=== PATIENT | female | born 1950 | race Caucasian/White ===

== ENCOUNTER → 2019-09-25 | Outpatient (CLI) | payer BC, MEDICARE ==
--- NOTE | 2019-09-25 10:06 | Diagnostic Imaging Report ---
PROCEDURE: CT sinuses without contrast TECHNIQUE: Multiple contiguous axial images were obtained through the sinuses without the use of intravenous contrast. Coronal and sagittal reformations were then performed. Auto Exposure Controls were utilized during the CT exam to meet ALARA standards for radiation dose reduction. INDICATION: Right-sided facial pain There are no prior studies available for comparison. The sinuses are generally clear and well aerated. There is no significant mucosal thickening or fluid layering to suggest sinusitis. There is a small 6 mm retention cyst along the posterior aspect of the right maxillary antrum. There may be a similar sized retention cyst along the lateral aspect of the left maxillary antrum. Coronal images reveal that the osteomeatal complexes are patent. The nasal septum is not significantly deviated. The bone windows show no evidence for a fracture or for a destructive lesion. The orbits are symmetrical and within normal limits. The intracranial contents, where visualized are unremarkable. IMPRESSION: There are small retention cysts in both maxillary antra. The sinuses are generally clear and well aerated however. There is no evidence for active sinus disease at this time. Dictated by: Dictated on workstation # [id number]
== END ==
LOC: RAD FS 08:54
PROVIDERS: ATTEND Otolaryngology Otolaryngology/Facial Plastic Surgery
DX: J34.1 Cyst and mucocele of nose and nasal sinus (principal); R51 Headache
CPT/HCPCS: 70486

== ENCOUNTER 2020-07-09 16:33 | Emergency (ER) | payer BC, MEDICARE ==
[~2020-07-09] VITALS: Ht 152.4 cm; Wt 80.9 kg
[~2020-07-09 16:33] MED LIST: AMLO2.5T4 PO; BUPR300T98 PO; CIPR500T4 PO; FEXO180T84 PO; FURO80TA3 PO; GABA300C PO; HYDR-3817 PO; HYDR12.56; LEVO75TA6 PO; LIOT5TAB10 PO; LISI1TAB46 PO; METF-865 PO; MONT10TA26 PO; POTA20TA15 PO; PREN-37 PO; ROSU5TAB13 PO; SPIR25TA5 PO; TOPI25TA10 PO; TRIA0.2581 PO
--- NOTE | 2020-07-09 16:48 | ED Chest Pain ---
General Stated Complaint: CHEST PAIN,RT LEG SWELLING/REDNESS Source: patient Exam Limitations: no limitations History of Present Illness Date Seen by Provider: Jul 09, 2020 Time Seen by Provider: 16:40 Initial Comments 69-year-old female presents with left-sided chest pain which began this morning. Worse with movement and deep breath. History of present illness, patient had atraumatic injury on 31 July with resultant rib fractures and pneumothorax. On July had a chest tube inserted which was removed 3 days later and she shortly after was sent home. She has been doing incentive spirometry and doing well otherwise. Denies any fever or chills, does have an occasional cough, denies shortness of air. She is on home O2, which she was not on prior to the injury. Allergies and Home Medications Allergies Coded Allergies: No Known Drug Allergies (Unverified , 06/30/20) Home Medications Amlodipine Besylate 2.5 Mg Tablet, 2.5 MG PO DAILY, (Reported) Bupropion HCl 300 Mg Tab.er.24h, 300 MG PO DAILY, (Reported) Ciprofloxacin HCl 500 Mg Tablet, 500 MG PO BID Prescribed by: KERA ANTONIO on 07/05/20 1141 Fexofenadine HCl 180 Mg Tablet, 180 MG PO BID, (Reported) Furosemide 80 Mg Tablet, 80 MG PO DAILY, (Reported) Gabapentin 300 Mg Capsule, 300 MG PO HS, (Reported) Hydrocodone/Acetaminophen 1 Each Tablet, 1 EACH PO Q4H Prescribed by: KERA ANTONIO on 07/04/20 1800 Levothyroxine Sodium 75 Mcg Tablet, 75 MCG PO HS, (Reported) Liothyronine Sodium 5 Mcg Tablet, 2.5 MCG PO 0700,1200, (Reported) TAKES OF A 5MG Lisinopril/Hydrochlorothiazide 1 Each Tablet, 1 EA PO DAILY, (Reported) Metformin HCl 500 Mg Tab.er.24h, 1,000 MG PO DAILY, (Reported) TAKES 2 (500MG) TABS Montelukast Sodium 10 Mg Tablet, 10 MG PO DAILY, (Reported) Potassium Chloride 20 Meq Tab.er.prt, 20 MEQ PO DAILY, (Reported) Vit/Iron Fumarate/FA 1 Each Tablet, 2 EACH PO DAILY, (Reported) Rosuvastatin Calcium 5 Mg Tablet, 5 MG PO DAILY, (Reported) Spironolactone 25 Mg Tablet, 25 MG PO DAILY, (Reported) Topiramate 25 Mg Tablet, 25 MG PO BID, (Reported) Triazolam 0.25 Mg Tablet, 0.5 MG PO HS PRN for SLEEP, (Reported) TAKES 2 (0.25MG) TABS Patient Home Medication List Home Medication List Reviewed: Yes Review of Systems Review of Systems Constitutional: No dizziness, No fever, No malaise, No weakness EENTM: No Symptoms Reported Respiratory: See HPI, Cough; Denies Orthopnea, Denies Shortness of Air, Denies Stridor, Denies Wheezing Cardiovascular: See HPI, Chest Pain; Denies Edema, Denies Lightheadedness, Denies Palpitations, Denies Syncope Gastrointestinal: Denies Abdominal Pain, Denies Nausea, Denies Vomiting Musculoskeletal: No back pain, No joint pain Skin: No change in color, No lesions, No lumps Past Bgalcgs-Vzbyqy-Kigotl Hx Past Med/Social Hx: Reviewed Nursing Past Med/Soc Hx Patient Social History 2nd Hand Smoke Exposure: No Recent Foreign Travel: No Contact w/Someone Who Travel: No Recent Hopitalizations: No Past Medical History Surgeries: Yes Gallbladder, Hysterectomy, Tonsillectomy Respiratory: No Cardiac: Yes Hypertension Neurological: No Genitourinary: No Gastrointestinal: No Musculoskeletal: No Endocrine: Yes Diabetes, Non-Insulin dep HEENT: No Cancer: No Psychosocial: No Integumentary: No Blood Disorders: No Physical Exam Vital Signs Vital Signs - First Documented Capillary Refill : Height, Weight, BMI Height: '" Weight: lbs. oz. kg; 34.74 BMI Method: General Appearance: No Apparent Distress, WD/WN Neck: Normal Inspection, Non Tender, Supple Respiratory: Lungs Clear, Normal Breath Sounds, No Accessory Muscle Use, No Respiratory Distress, Other (diffuse tenderness Left chest wall) Cardiovascular: Regular Rate, Rhythm, No Edema, No JVD, Normal Peripheral Pulses Gastrointestinal: Non Tender, Soft; No Distended, No Guarding Extremity: Normal Capillary Refill, Non Tender, No Calf Tenderness Neurologic/Psychiatric: Alert, Oriented x3, No Motor/Sensory Deficits, Normal Mood/Affect Skin: Normal Color, Warm/Dry Progress/Results/Core Measures Results/Orders Lab Results Laboratory Tests Test 07/09/20 16:50 Range/Units White Blood Count 11.6 H 4.3-11.0 10^3/uL Red Blood Count 3.48 L 4.35-5.85 10^6/uL Hemoglobin 9.5 L 11.5-16.0 G/DL Hematocrit 30 L 35-52 % Mean Corpuscular Volume 86 80-99 FL Mean Corpuscular Hemoglobin 27 25-34 PG Mean Corpuscular Hemoglobin Concent 32 32-36 G/DL Red Cell Distribution Width 15.1 H 10.0-14.5 % Platelet Count 326 130-400 10^3/uL Mean Platelet Volume 9.2 7.4-10.4 FL Neutrophils (%) (Auto) 62 42-75 % Lymphocytes (%) (Auto) 21 12-44 % Monocytes (%) (Auto) 11 0-12 % Eosinophils (%) (Auto) 4 0-10 % Basophils (%) (Auto) 1 0-10 % Neutrophils # (Auto) 7.2 1.8-7.8 X 10^3 Lymphocytes # (Auto) 2.5 1.0-4.0 X 10^3 Monocytes # (Auto) 1.3 H 0.0-1.0 X 10^3 Eosinophils # (Auto) 0.4 H 0.0-0.3 10^3/uL Basophils # (Auto) 0.1 0.0-0.1 10^3/uL Sodium Level 137 135-145 MMOL/L Potassium Level 4.6 3.6-5.0 MMOL/L Chloride Level 96 L 98-107 MMOL/L Carbon Dioxide Level 26 21-32 MMOL/L Anion Gap 15 H 5-14 MMOL/L Blood Urea Nitrogen 21 H 7-18 MG/DL Creatinine 1.34 H 0.60-1.30 MG/DL Estimat Glomerular Filtration Rate 39 BUN/Creatinine Ratio 16 Glucose Level 104 70-105 MG/DL Calcium Level 9.3 8.5-10.1 MG/DL Corrected Calcium 9.8 8.5-10.1 MG/DL Total Bilirubin 0.3 0.1-1.0 MG/DL Aspartate Amino Transf (AST/SGOT) 31 5-34 U/L Alanine Aminotransferase (ALT/SGPT) 32 0-55 U/L Alkaline Phosphatase 147 H 40-136 U/L Troponin I < 0.30 <0.30 NG/ML Total Protein 7.0 6.4-8.2 GM/DL Albumin 3.4 3.2-4.5 GM/DL My Orders Orders - ROVENSTINE,NILDA Bijan DO Chest Pa/Lat (2 View) (07/09/20 16:38) Cbc With Automated Diff (07/09/20 16:43) Comprehensive Metabolic Panel (07/09/20 16:43) Troponin I Fs (07/09/20 16:43) Ekg Tracing (07/09/20 16:43) Ed Iv/Invasive Line Start (07/09/20 16:43) Ns Iv 500 Ml (Sodium Chloride 0.9%) (07/09/20 17:45) Vital Signs/I&O 07/09/20 07/09/20 16:35 16:35 Temp 37.2 Pulse 73 Resp 15 B/P (MAP) 138/55 (82) Pulse Ox 100 O2 Delivery Nasal Cannula Nasal Cannula O2 Flow Rate 3.00 3.0 Progress Progress Note : Progress Note COMPARISON: 07/04/2020. FINDINGS: Normal heart size and central pulmonary vascularity. Moderate left pleural effusion is similar to the prior exam. Lungs are otherwise well aerated. No residual pneumothorax. Multiple left posterior and lateral rib fractures are again noted. IMPRESSION: 1. Stable multiple left rib fractures. 2. Moderate left pleural effusion and resulting consolidation in the left lung base is also similar to the prior exam. 3. No residual pneumothorax is identified. Dictated on workstation # [id number] Dict: 07/09/20 1705 Trans: 07/09/20 1710 [id number] Interpreted by: JOE EPNA MD Electronically signed by: Initial ECG Impression Time: 16:40 Initial ECG Rate: 70 Initial ECG Rhythm: Normal Sinus Initial ECG Intervals: Normal Initial ECG Impression: Normal Departure Impression Primary Impression: Chest wall pain Additional Impressions: Fracture of rib Qualified Codes: S22.42XD - Multiple fractures of ribs, left side, subsequent encounter for fracture with routine healing Pleural effusion Mild dehydration Disposition: 01 HOME, SELF-CARE Condition: Stable Departure-Patient Inst. Decision time for Depature: 17:40 Referrals: JONATHAN RDZ MD (PCP/Family) Primary Care Physician Patient Instructions: Rib Fracture (DC), Blunt Chest Trauma (DC) Add. Discharge Instructions: Keep your follow up appointment with Dr Bashir tomorrow as previously scheduled. Return to the ER with any worsening pain. NILDA ABARCA DO Jul 09, 2020 16:48
[2020-07-09 17:08] LABS: HEMATOCRIT 30 % (35-52); HEMOGLOBIN 9.5 G/DL (11.5-16.0); MEAN CORPUSCULAR HEMOGLOBIN 27 PG (25-34); MEAN CORPUSCULAR HGB CONC 32 G/DL (32-36); MEAN CORPUSCULAR VOLUME 86 FL (80-99); MEAN PLATELET VOLUME 9.2 FL (7.4-10.4); PLATELET COUNT 326 10^3/uL (130-400); WHITE BLOOD COUNT 11.6 10^3/uL (4.3-11.0)
[2020-07-09 17:09] LABS: BASOPHILS # (AUTO) 0.1 10^3/uL (0.0-0.1); BASOPHILS % (AUTO) 1 % (0-10); EOSINOPHILS # (AUTO) 0.4 10^3/uL (0.0-0.3); EOSINOPHILS % (AUTO) 4 % (0-10); LYMPHOCYTES # (AUTO) 2.5 X 10^3 (1.0-4.0); LYMPHOCYTES % (AUTO) 21 % (12-44); MONOCYTES # (AUTO) 1.3 X 10^3 (0.0-1.0); MONOCYTES % (AUTO) 11 % (0-12); NEUTROPHILS # (AUTO) 7.2 X 10^3 (1.8-7.8); NEUTROPHILS % (AUTO) 62 % (42-75)
--- NOTE | 2020-07-09 17:10 | Diagnostic Imaging Report ---
EXAM: CHEST PA/LAT (2 VIEW). INDICATION: Recent pneumothorax. Left-sided chest pain. COMPARISON: 07/04/2020. FINDINGS: Normal heart size and central pulmonary vascularity. Moderate left pleural effusion is similar to the prior exam. Lungs are otherwise well aerated. No residual pneumothorax. Multiple left posterior and lateral rib fractures are again noted. IMPRESSION: 1. Stable multiple left rib fractures. 2. Moderate left pleural effusion and resulting consolidation in the left lung base is also similar to the prior exam. 3. No residual pneumothorax is identified. Dictated by: Dictated on workstation # [id number]
[2020-07-09 17:31] LABS: ALKALINE PHOSPHATASE 147 U/L (40-136); BILIRUBIN,TOTAL 0.3 MG/DL (0.1-1.0); BUN/CREATININE RATIO 16; CALCIUM 9.3 MG/DL (8.5-10.1); CARBON DIOXIDE 26 MMOL/L (21-32); CHLORIDE 96 MMOL/L (98-107); CREATININE SERUM 1.34 MG/DL (0.60-1.30); GFR ESTIMATED 39; GLUCOSE 104 MG/DL (70-105); POTASSIUM 4.6 MMOL/L (3.6-5.0); SODIUM 137 MMOL/L (135-145)
[2020-07-09 17:32] LABS: ALANINE AMINOTRANSFERASE 32 U/L (0-55); ALBUMIN 3.4 GM/DL (3.2-4.5)
[2020-07-09] MEDS ORDERED: NS IV 500 ML 500 ML IV SCH (17:45)
[2020-07-09 18:26] VITALS: BP 119/42
== END 2020-07-09 18:26 | disposition home or self-care (01) ==
LOC: EDUNIT# 16:33 → ER FS 16:34
DX: S22.42XD Multiple fractures of ribs, left side, subsequent encounter for fracture with routine healing (principal); R07.89 Other chest pain; J90 Pleural effusion, not elsewhere classified; E86.0 Dehydration; E11.9 Type 2 diabetes mellitus without complications; I10 Essential (primary) hypertension; Z79.84 Long term (current) use of oral hypoglycemic drugs; X58.XXXD Exposure to other specified factors, subsequent encounter
CPT/HCPCS: 36415; 71046; 80053; 84484; 85025; 93005

== ENCOUNTER → 2020-07-11 | Outpatient (CLI) | payer BC, MEDICARE ==
[2020-07-11 13:08] LABS: CREATININE SERUM 1.55 MG/DL (0.60-1.30); MAGNESIUM 2.3 MG/DL (1.6-2.4); POTASSIUM 4.6 MMOL/L (3.6-5.0)
[2020-07-11 13:09] LABS: ALBUMIN 3.5 GM/DL (3.2-4.5); BILIRUBIN,TOTAL 0.2 MG/DL (0.1-1.0)
== END ==
LOC: LAB FS 12:25
PROVIDERS: ATTEND Nurse Practitioner Family
DX: M79.661 Pain in right lower leg (principal)
CPT/HCPCS: 36415; 80053; 83735

== ENCOUNTER 2020-10-01 12:08 | Inpatient (IN) | payer BC, MEDICARE ==
[~2020-10-01] VITALS: Ht 165.1 cm; Wt 78.3 kg
[2020-10-01 12:31] LABS: BASOPHILS % (AUTO) 1 % (0-10); EOSINOPHILS % (AUTO) 3 % (0-10); HEMATOCRIT 34 % (35-52); HEMOGLOBIN 10.7 G/DL (11.5-16.0); LYMPHOCYTES # (AUTO) 2.2 X 10^3 (1.0-4.0); LYMPHOCYTES % (AUTO) 30 % (12-44); MEAN CORPUSCULAR HEMOGLOBIN 28 PG (25-34); MEAN CORPUSCULAR HGB CONC 32 G/DL (32-36); MEAN CORPUSCULAR VOLUME 87 FL (80-99); MEAN PLATELET VOLUME 9.4 FL (7.4-10.4); MONOCYTES % (AUTO) 10 % (0-12); NEUTROPHILS # (AUTO) 4.1 X 10^3 (1.8-7.8); NEUTROPHILS % (AUTO) 57 % (42-75); PLATELET COUNT 289 10^3/uL (130-400); WHITE BLOOD COUNT 7.3 10^3/uL (4.3-11.0)
[2020-10-01 12:32] LABS: EOSINOPHILS # (AUTO) 0.2 10^3/uL (0.0-0.3); MONOCYTES # (AUTO) 0.7 X 10^3 (0.0-1.0)
--- NOTE | 2020-10-01 12:41 | Diagnostic Imaging Report ---
PROCEDURE: CT head without contrast. TECHNIQUE: Multiple contiguous axial images were obtained through the brain without the use of intravenous contrast. Auto Exposure Controls were utilized during the CT exam to meet ALARA standards for radiation dose reduction. INDICATION: Loss of memory. Patient has prior history of brain tumor with tumor removal. COMPARISON: No prior studies are available for comparison. FINDINGS: There are postsurgical changes of the right occipital craniectomy. There is some encephalomalacia in the right occipital lobe as well as some dystrophic calcifications. Ventricles and sulci are otherwise unremarkable. No sulcal effacement or midline shift is identified. No acute intra-axial or extra-axial hemorrhage is detected. Cisterns are patent. Visualized paranasal sinuses are clear. IMPRESSION: Postsurgical changes. No acute intracranial process is detected. Dictated by: Dictated on workstation # [id number]
[2020-10-01 12:48] LABS: PROTHROMBIN TIME PATIENT 13.5 SEC (12.2-14.7)
--- NOTE | 2020-10-01 13:06 | Diagnostic Imaging Report ---
EXAMINATION: Chest 1 view HISTORY: Shortness of breath COMPARISON: 07/09/2020 FINDINGS: The lungs are clear without edema or pneumonia. No pleural effusion or pneumothorax. Heart size is normal. IMPRESSION: 1. Clear lungs. Dictated by: Dictated on workstation # [id number]
[2020-10-01 13:17] LABS: POTASSIUM 5.1 MMOL/L (3.6-5.0)
[2020-10-01 13:18] LABS: BILIRUBIN,TOTAL 0.2 MG/DL (0.1-1.0); CALCIUM 9.3 MG/DL (8.5-10.1); CREATININE SERUM 2.95 MG/DL (0.60-1.30); MAGNESIUM 2.7 MG/DL (1.6-2.4); TOTAL PROTEIN 7.1 GM/DL (6.4-8.2)
[2020-10-01] MEDS ORDERED: NS IV 1000 ML 1,000 ML IV SCH ×2 (14:00→15:45)
--- NOTE | 2020-10-01 14:04 | ED General ---
General Chief Complaint: Altered Mental Status Stated Complaint: AMS Nursing Triage Note: Patient's reports patient woke this morning around 5 am unable to remember her date of and had loss of balance. Patient oriented to person and place on arrival to the ED, unable to remember the month, day, or year. She states she was getting ready for work this morning and "just didn't feel right." Nursing Sepsis Screen: No Definite Risk Source of Information: Patient History of Present Illness Date Seen by Provider: Oct 01, 2020 Time Seen by Provider: 13:00 Initial Comments Patient confused since this morning unable to remember date and location and dizzy and lightheaded upon standing. Patient alert and oriented to person ED arrival but unable to remember place month tear year. Patient states she does not feel right. No focal extremity weakness or loss of sensation. Patient started on phentermine yesterday by PCP. No recent illness. No fever chills nausea vomiting or sweats. No chest pain palpitations, shortness of breath. No abdominal pain, vomiting diarrhea. No urinary frequency urgency or dysuria. No other acute symptoms or complaints. Patient's history is limited by the cognitive impairment Timing/Duration: 4-6 Hours Severity: Moderate Modifying Factors: improves with Other Associated Systoms: Other (limited due to mental status changes) Allergies and Home Medications Allergies Coded Allergies: No Known Drug Allergies (Unverified , 06/30/20) Home Medications Amlodipine Besylate 2.5 Mg Tablet, 2.5 MG PO DAILY, (Reported) Bupropion HCl 300 Mg Tab.er.24h, 300 MG PO DAILY, (Reported) Ciprofloxacin HCl 500 Mg Tablet, 500 MG PO BID Prescribed by: KERA ANTONIO on 07/05/20 1141 Fexofenadine HCl 180 Mg Tablet, 180 MG PO BID, (Reported) Furosemide 80 Mg Tablet, 80 MG PO DAILY, (Reported) Gabapentin 300 Mg Capsule, 300 MG PO HS, (Reported) Hydrocodone/Acetaminophen 1 Each Tablet, 1 EACH PO Q4H Prescribed by: KERA ANTONIO on 07/04/20 1800 Levothyroxine Sodium 75 Mcg Tablet, 75 MCG PO HS, (Reported) Liothyronine Sodium 5 Mcg Tablet, 2.5 MCG PO 0700,1200, (Reported) TAKES OF A 5MG Lisinopril/Hydrochlorothiazide 1 Each Tablet, 1 EA PO DAILY, (Reported) Metformin HCl 500 Mg Tab.er.24h, 1,000 MG PO DAILY, (Reported) TAKES 2 (500MG) TABS Montelukast Sodium 10 Mg Tablet, 10 MG PO DAILY, (Reported) Potassium Chloride 20 Meq Tab.er.prt, 20 MEQ PO DAILY, (Reported) Vit/Iron Fumarate/FA 1 Each Tablet, 2 EACH PO DAILY, (Reported) Rosuvastatin Calcium 5 Mg Tablet, 5 MG PO DAILY, (Reported) Spironolactone 25 Mg Tablet, 25 MG PO DAILY, (Reported) Topiramate 25 Mg Tablet, 25 MG PO BID, (Reported) Triazolam 0.25 Mg Tablet, 0.5 MG PO HS PRN for SLEEP, (Reported) TAKES 2 (0.25MG) TABS Patient Home Medication List Home Medication List Reviewed: Yes Review of Systems Review of Systems Constitutional: see HPI EENTM: see HPI Respiratory: see HPI Cardiovascular: see HPI Gastrointestinal: see HPI Genitourinary: see HPI Musculoskeletal: see HPI Skin: see HPI Psychiatric/Neurological: See HPI Hematologic/Lymphatic: See HPI Immunological/Allergic: see HPI All Other Systems Reviewed Negative Unless Noted: Yes Past Qeznqfr-Kpjrau-Cytdwy Hx Past Med/Social Hx: Reviewed Nursing Past Med/Soc Hx Patient Social History 2nd Hand Smoke Exposure: No Recent Foreign Travel: No Contact w/Someone Who Travel: No Recent Infectious Disease Expo: No Recent Hopitalizations: No Seasonal Allergies Seasonal Allergies: No Past Medical History Surgeries: Yes (Pneumothorax with chest tube 06/2019) Gallbladder, Hysterectomy, Tonsillectomy Respiratory: No Cardiac: Yes Hypertension Neurological: Yes (brain tumor surgically removed) Brain Tumor Genitourinary: No Gastrointestinal: No Musculoskeletal: No Endocrine: Yes Diabetes, Non-Insulin dep HEENT: No Cancer: No Psychosocial: No Integumentary: No Blood Disorders: No Physical Exam Vital Signs Vital Signs - First Documented 10/01/20 12:15 Temp 36.7 Pulse 63 Resp 18 B/P (MAP) 115/36 (62) Pulse Ox 98 O2 Delivery Room Air Capillary Refill : Less Than 3 Seconds Height, Weight, BMI Height: '" Weight: lbs. oz. 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 Norm as Tested Focused Exam Sepsis Stage: Ruled Out Lactate Level 10/01/20 16:10: Lactic Acid Level Laboratory Tests Test 10/01/20 16:10 Progress/Results/Core Measures Suspected Sepsis Recent Fever Within 48 Hours: No Infection Criteria Present: None New/Unexplained Altered Menta: No Sepsis Screen: No Definite Risk SIRS Temperature: Pulse: 63 Respiratory Rate: 18 Laboratory Tests 10/01/20 12:16: White Blood Count 7.3 Blood Pressure 115 /36 Mean: 62 10/01/20 16:10: Laboratory Tests 10/01/20 12:16: Creatinine 2.95H, INR Comment 1.0, Platelet Count 289, Total Bilirubin 0.2 Results/Orders Lab Results Laboratory Tests Test 10/01/20 12:16 10/01/20 12:38 10/01/20 12:43 10/01/20 16:10 Range/Units White Blood Count 7.3 4.3-11.0 10^3/uL Red Blood Count 3.86 L 4.35-5.85 10^6/uL Hemoglobin 10.7 L 11.5-16.0 G/DL Hematocrit 34 L 35-52 % Mean Corpuscular Volume 87 80-99 FL Mean Corpuscular Hemoglobin 28 25-34 PG Mean Corpuscular Hemoglobin Concent 32 32-36 G/DL Red Cell Distribution Width 14.7 H 10.0-14.5 % Platelet Count 289 130-400 10^3/uL Mean Platelet Volume 9.4 7.4-10.4 FL Immature Granulocyte % (Auto) 0 % Neutrophils (%) (Auto) 57 42-75 % Lymphocytes (%) (Auto) 30 12-44 % Monocytes (%) (Auto) 10 0-12 % Eosinophils (%) (Auto) 3 0-10 % Basophils (%) (Auto) 1 0-10 % Neutrophils # (Auto) 4.1 1.8-7.8 X 10^3 Lymphocytes # (Auto) 2.2 1.0-4.0 X 10^3 Monocytes # (Auto) 0.7 0.0-1.0 X 10^3 Eosinophils # (Auto) 0.2 0.0-0.3 10^3/uL Basophils # (Auto) 0.0 0.0-0.1 10^3/uL Immature Granulocyte # (Auto) 0.0 0.0-0.1 10^3/uL Prothrombin Time 13.5 12.2-14.7 SEC INR Comment 1.0 0.8-1.4 Activated Partial Thromboplast Time 40 H 24-35 SEC Sodium Level 140 135-145 MMOL/L Potassium Level 5.1 H 3.6-5.0 MMOL/L Chloride Level 102 98-107 MMOL/L Carbon Dioxide Level 27 21-32 MMOL/L Anion Gap 11 5-14 MMOL/L Blood Urea Nitrogen 50 H 7-18 MG/DL Creatinine 2.95 H 0.60-1.30 MG/DL Estimat Glomerular Filtration Rate 16 BUN/Creatinine Ratio 17 Glucose Level 135 H 70-105 MG/DL Calcium Level 9.3 8.5-10.1 MG/DL Corrected Calcium 9.3 8.5-10.1 MG/DL Magnesium Level 2.7 H 1.6-2.4 MG/DL Total Bilirubin 0.2 0.1-1.0 MG/DL Aspartate Amino Transf (AST/SGOT) 16 5-34 U/L Alanine Aminotransferase (ALT/SGPT) 12 0-55 U/L Alkaline Phosphatase 97 40-136 U/L Total Protein 7.1 6.4-8.2 GM/DL Albumin 4.0 3.2-4.5 GM/DL Thyroid Stimulating Hormone (TSH) 1.40 0.35-4.94 UIU/ML Glucometer 122 H 70-110 MG/DL Urine Color YELLOW Urine Clarity CLEAR Urine pH 8.0 5-9 Urine Specific [place] 1.010 L 1.016-1.022 Urine Protein NEGATIVE NEGATIVE Urine Glucose (UA) NEGATIVE NEGATIVE Urine Ketones NEGATIVE NEGATIVE Urine Nitrite NEGATIVE NEGATIVE Urine Bilirubin NEGATIVE NEGATIVE Urine Urobilinogen 0.2 < = 1.0 MG/DL Urine Leukocyte Esterase NEGATIVE NEGATIVE Urine RBC (Auto) NEGATIVE NEGATIVE Urine RBC NONE /HPF Urine WBC RARE /HPF Urine Squamous Epithelial Cells 2-5 /HPF Urine Crystals NONE /LPF Urine Bacteria NEGATIVE /HPF Urine Casts NONE /LPF Urine Mucus NEGATIVE /LPF Urine Culture Indicated NO My Orders Orders - KRZYSZTOF CADET DO Ct Head Wo (10/01/20 12:14) Cbc With Automated Diff (10/01/20 12:20) Comprehensive Metabolic Panel (10/01/20 12:20) Magnesium (10/01/20 12:20) Thyroid Stimulating Hormone (10/01/20 12:20) Ekg Tracing (10/01/20 12:20) Chest 1 View Ap/Pa Only (10/01/20 12:20) Protime With Inr (10/01/20 12:23) Partial Thromboplastin Time (10/01/20 12:23) Accucheck Fasting (10/01/20 12:23) Ns Iv 1000 Ml (Sodium Chloride 0.9%) (10/01/20 14:00) Urinalysis (10/01/20 15:35) Drug Screen Stat (Urine) (10/01/20 15:42) Lactic Acid Analyzer (10/01/20 15:43) Arterial Blood Gas (10/01/20 15:43) Ns Iv 1000 Ml (Sodium Chloride 0.9%) (10/01/20 15:45) Thiamine Injection (Vitamin B-1 Injectio (10/02/20 09:00) Vital Signs/I&O 10/01/20 12:15 Temp 36.7 Pulse 63 Resp 18 B/P (MAP) 115/36 (62) Pulse Ox 98 O2 Delivery Room Air Capillary Refill : Less Than 3 Seconds Blood Pressure Mean: 62 Departure Communication (Admissions) Patient with memory loss, dizziness and hypotension and acute kidney injury.. Night stroke score of 1. No acute focal deficits. IV fluids given. CT head negative. Will admit to the hospitalist service for further evaluation and treatment. Impression Primary Impression: Altered mental status Additional Impression: Acute kidney injury Disposition: ADMITTED INPATIENT Condition: Stable Admissions Decision to Admit Reason: Admit from ER (General) Departure-Patient Inst. Decision time for Depature: 14:11 Referrals: [facility] (PCP) Primary Care Physician PAUL COLLADO APRN (Family) Primary Care Physician Patient Instructions: Acute Kidney Injury, Altered Mental Status (DC) KRZYSZTOF CADET DO Oct 01, 2020 14:04
[2020-10-01 15:46] LABS: CLARITY,URINE CLEAR; COLOR,URINE YELLOW; GLUCOSE, URINE (UA) NEGATIVE (NEGATIVE); KETONES,URINE NEGATIVE (NEGATIVE); NITRITE,URINE NEGATIVE (NEGATIVE); PROTEIN,URINE NEGATIVE (NEGATIVE)
[2020-10-01 15:47] LABS: BACTERIA,URINE NEGATIVE /HPF; BILIRUBIN,URINE NEGATIVE (NEGATIVE); LEUKOCYTE ESTERASE ,URINE NEGATIVE (NEGATIVE); WBC,URINE RARE /HPF
[2020-10-01] MEDS ORDERED: THIAMINE 100 MG/ML 2 ML (VITAMIN B-1) VIAL ONE (16:31)
[2020-10-01] MEDS ORDERED: NS (IVPB) 50 ML ONE (16:32)
[2020-10-01 17:11] LABS: AMPHETAMINE SCREEN, URINE POSITIVE (NEGATIVE); OPIATE SCREEN URINE POSITIVE (NEGATIVE)
[2020-10-01 17:12] LABS: BARBITURATE SCREEN URINE NEGATIVE (NEGATIVE); BENZODIAZEPINES SCREEN URINE NEGATIVE (NEGATIVE); CANNABINOID SCREEN, URINE NEGATIVE (NEGATIVE); COCAINE SCREEN URINE NEGATIVE (NEGATIVE); METHADONE STAT NEGATIVE (NEGATIVE); METHAMPHETAMINE SCREEN URINE S NEGATIVE (NEGATIVE); OXYCODONE STAT NEGATIVE (NEGATIVE); PROPOXYPHENE STAT NEGATIVE (NEGATIVE); TRICYCLIC ANTIDEPRESSANTS SCRE NEGATIVE (NEGATIVE)
--- NOTE | 2020-10-01 17:43 | NUR ---
LIANET MUJICA admitted to room , with an admitting diagnosis of AMS, on from ED via EMS, accompanied by staff .LIANET MUJICA introduced to surroundings, call light, bed controls, phone, TV, temperature control, lights, meal times, smoking policy, visitor policy, side rail policy, bathrooms and showers. Patient Rights given to patient in the handbook. LIANET MUJICA verbalizes understanding that [facility] is not responsible for the loss or damage to any personal effects or valuables that are kept in the patients posession during their hospitalization. The following Patient Care Plans and discharge were discussed with the patient . LIANET MUJICA verbalizes understanding of Interdisciplinary Patient Education. Patient was informed about the Rapid Response Team and its purpose.
[2020-10-01 18:33] LABS: ABG BASE EXCESS -1.9 MMOL/L (-2.5-2.5); ABG OXYGEN SATURATION 92 % (94-100); ABG PCO2 46 MMHG (35-45); ABG PH 7.33 (7.37-7.43); ABG PO2 64 MMHG (79-93); ABG TCO2 24.9 MMOL/L (21.0-31.0); ALLENS TEST POSITIVE; VENTILATOR NO
[2020-10-01 18:34] LABS: PATIENT TEMP 36
[2020-10-01] MEDS: NS IV 1000 ML 1,000 ML IV SCH (22:41)
--- NOTE | 2020-10-02 03:59 | Pulmonary Consultation ---
XAVI GUTIÉRREZ,MED STUDENT 10/02/20 0359: History of Present Illness History of Present Illness Date Seen by Provider: Oct 02, 2020 Time Seen by Provider: 03:15 Date of Admission 10/01/20 History of Present Illness 70yo female with a PMH of HTN and NIDDM presented to [facility] ED yesterday 10/01 c/o confusion, and lightheadedness and dizziness on standing. Denied fevers, chills, n/v/d/abdominal pain, SOB, or urinary symptoms. She did report being started on Phentermine the day prior by her PCP. Head CT revealed no acute changes, and lungs were clear on CXR. Creatinine was found to be 2.95, and IV fluids were started. Allergies and Home Medications Allergies Coded Allergies: No Known Drug Allergies (Unverified , 06/30/20) Home Medications Amlodipine Besylate 2.5 Mg Tablet, 2.5 MG PO DAILY, (Reported) Bupropion HCl 300 Mg Tab.er.24h, 300 MG PO DAILY, (Reported) Ciprofloxacin HCl 500 Mg Tablet, 500 MG PO BID Prescribed by: KERA ANTONIO on 07/05/20 1141 Fexofenadine HCl 180 Mg Tablet, 180 MG PO BID, (Reported) Furosemide 80 Mg Tablet, 80 MG PO DAILY, (Reported) Gabapentin 300 Mg Capsule, 300 MG PO HS, (Reported) Hydrocodone/Acetaminophen 1 Each Tablet, 1 EACH PO Q4H Prescribed by: KERA ANTONIO on 07/04/20 1800 Levothyroxine Sodium 75 Mcg Tablet, 75 MCG PO HS, (Reported) Liothyronine Sodium 5 Mcg Tablet, 2.5 MCG PO 0700,1200, (Reported) TAKES OF A 5MG Lisinopril/Hydrochlorothiazide 1 Each Tablet, 1 EA PO DAILY, (Reported) Metformin HCl 500 Mg Tab.er.24h, 1,000 MG PO DAILY, (Reported) TAKES 2 (500MG) TABS Montelukast Sodium 10 Mg Tablet, 10 MG PO DAILY, (Reported) Potassium Chloride 20 Meq Tab.er.prt, 20 MEQ PO DAILY, (Reported) Vit/Iron Fumarate/FA 1 Each Tablet, 2 EACH PO DAILY, (Reported) Rosuvastatin Calcium 5 Mg Tablet, 5 MG PO DAILY, (Reported) Spironolactone 25 Mg Tablet, 25 MG PO DAILY, (Reported) Topiramate 25 Mg Tablet, 25 MG PO BID, (Reported) Triazolam 0.25 Mg Tablet, 0.5 MG PO HS PRN for SLEEP, (Reported) TAKES 2 (0.25MG) TABS Past Xxnvezs-Dtffye-Zfneme Hx Past Med/Social Hx: Reviewed Nursing Past Med/Soc Hx Patient Social History Alcohol Use: Denies Use Recreational Drug Use: No 2nd Hand Smoke Exposure: No Recent Foreign Travel: No Contact w/Someone Who Travel: No Recent Infectious Disease Expo: No Recent Hopitalizations: No Physical Abuse: No Sexual Abuse: No Mistreated: No Fear: No Immunizations Up To Date Date of Influenza Vaccine: Aug 01, 2020 Seasonal Allergies Seasonal Allergies: No Past Medical History Surgeries: Yes (Pneumothorax with chest tube 06/2019) Gallbladder, Hysterectomy, Tonsillectomy Respiratory: No Cardiac: Yes Hypertension Neurological: Yes (brain tumor surgically removed) Brain Tumor Genitourinary: No Gastrointestinal: No Musculoskeletal: No Endocrine: Yes Diabetes, Non-Insulin dep HEENT: No Cancer: No Psychosocial: No Integumentary: No Blood Disorders: No Family Medical History Patient reports no known family medical history. Review of Systems Constitutional: No: Fever, Chills, Weakness ENT: No: Nose congestion, Throat pain Respiratory: No: Cough, Shortness of breath, Pleuritic Pain Cardiovascular: Lt Headedness; No: Chest Pain, Palpitations, Edema Gastrointestinal: No: Nausea, Vomiting, Abdominal Pain, Diarrhea Genitourinary: No Dysuria, No Frequency Neurological: Confusion; No: Weakness, Numbness Sepsis Event Evaluation Height, Weight, BMI Height: '" Weight: lbs. oz. kg; 28.28 BMI Method: Exam Exam Vital Signs Date Time Temp Pulse Resp B/P (MAP) Pulse Ox O2 Delivery O2 Flow Rate FiO2 10/02/20 00:00 36.0 10/01/20 23:00 77 20 115/71 97 Room Air 10/01/20 22:00 67 12 134/64 100 Room Air 10/01/20 21:00 71 18 118/71 100 Room Air 10/01/20 20:00 100 Room Air 10/01/20 20:00 35.9 10/01/20 20:00 71 22 117/48 100 Room Air 10/01/20 19:00 65 16 142/88 93 Room Air 12/1/20 19:00 65 10/01/20 18:09 100 Room Air 10/01/20 17:55 76 10/01/20 17:46 36.0 81 16 139/90 100 Room Air 10/01/20 16:50 36.9 71 18 124/50 100 Room Air 10/01/20 12:15 36.7 63 18 115/36 (62) 98 Room Air I & O 10/02/20 07:00 Intake Total 1000 ml Output Total 1500 ml Balance -500 ml Height & Weight Height: '" Weight: lbs. oz. 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 as Tested, Disoriented Skin: Normal Color, Warm/Dry Results Lab Laboratory Tests 10/01/20 12:16 DEANA MONZON DO 10/02/20 0518: History of Present Illness History of Present Illness Time Seen by Provider: 05:13 Allergies and Home Medications Allergies Coded Allergies: No Known Drug Allergies (Unverified , 06/30/20) Home Medications Amlodipine Besylate 2.5 Mg Tablet, 2.5 MG PO DAILY, (Reported) Bupropion HCl 300 Mg Tab.er.24h, 300 MG PO DAILY, (Reported) Ciprofloxacin HCl 500 Mg Tablet, 500 MG PO BID Prescribed by: KERA ANTONIO on 07/05/20 1141 Fexofenadine HCl 180 Mg Tablet, 180 MG PO BID, (Reported) Furosemide 80 Mg Tablet, 80 MG PO DAILY, (Reported) Gabapentin 300 Mg Capsule, 300 MG PO HS, (Reported) Hydrocodone/Acetaminophen 1 Each Tablet, 1 EACH PO Q4H Prescribed by: KERA ANTONIO on 07/04/20 1800 Levothyroxine Sodium 75 Mcg Tablet, 75 MCG PO HS, (Reported) Liothyronine Sodium 5 Mcg Tablet, 2.5 MCG PO 0700,1200, (Reported) TAKES OF A 5MG Lisinopril/Hydrochlorothiazide 1 Each Tablet, 1 EA PO DAILY, (Reported) Metformin HCl 500 Mg Tab.er.24h, 1,000 MG PO DAILY, (Reported) TAKES 2 (500MG) TABS Montelukast Sodium 10 Mg Tablet, 10 MG PO DAILY, (Reported) Potassium Chloride 20 Meq Tab.er.prt, 20 MEQ PO DAILY, (Reported) Vit/Iron Fumarate/FA 1 Each Tablet, 2 EACH PO DAILY, (Reported) Rosuvastatin Calcium 5 Mg Tablet, 5 MG PO DAILY, (Reported) Spironolactone 25 Mg Tablet, 25 MG PO DAILY, (Reported) Topiramate 25 Mg Tablet, 25 MG PO BID, (Reported) Triazolam 0.25 Mg Tablet, 0.5 MG PO HS PRN for SLEEP, (Reported) TAKES 2 (0.25MG) TABS Past Yaevmgs-Vcyjgb-Kainyw Hx Family Medical History Patient reports no known family medical history. Review of Systems Time Seen by Provider: 05:13 Assessment/Plan Assessment/Plan MS changes/confusion -CT head is negative -Possibly related to recently started phenteramine ARF prerenal -IVF Hx of brain mass - nonmalignant s/p resection Obesity with probable undiagnosed MAR -Out pt testing XAVI GUTIÉRREZ,MED STUDENT Oct 02, 2020 03:59 DEANA MONZON DO Oct 02, 2020 05:18
[2020-10-02] MEDS: NS IV 1000 ML 1,000 ML IV SCH (04:18)
[2020-10-02 04:30] LABS: BASOPHILS % (AUTO) 0 % (0-10); EOSINOPHILS # (AUTO) 0.2 10^3/uL (0.0-0.3); EOSINOPHILS % (AUTO) 3 % (0-10); HEMATOCRIT 35 % (35-52); HEMOGLOBIN 10.6 g/dL (11.5-16.0); LYMPHOCYTES # (AUTO) 2.2 10^3/uL (1.0-4.0); LYMPHOCYTES % (AUTO) 31 % (12-44); MEAN CORPUSCULAR HEMOGLOBIN 28 pg (25-34); MEAN CORPUSCULAR HGB CONC 31 g/dL (32-36); MEAN CORPUSCULAR VOLUME 90 fL (80-99); MEAN PLATELET VOLUME 9.6 fL (9.0-12.2); MONOCYTES # (AUTO) 0.7 10^3/uL (0.0-1.0); MONOCYTES % (AUTO) 9 % (0-12); NEUTROPHILS # (AUTO) 4.1 10^3/uL (1.8-7.8); NEUTROPHILS % (AUTO) 57 % (42-75); PLATELET COUNT 265 10^3/uL (130-400); WHITE BLOOD COUNT 7.2 10^3/uL (4.3-11.0)
[2020-10-02 04:45] LABS: POTASSIUM 4.9 MMOL/L (3.6-5.0)
[2020-10-02 04:46] LABS: CALCIUM 8.8 MG/DL (8.5-10.1)
[2020-10-02 04:50] LABS: CREATININE SERUM 1.97 MG/DL (0.60-1.30); PHOSPHORUS 3.5 MG/DL (2.3-4.7)
[2020-10-02 04:53] LABS: MAGNESIUM 2.7 MG/DL (1.6-2.4)
[2020-10-02] MEDS ORDERED: LACTATED RINGERS 1,000 ML IV SCH (05:30)
--- NOTE | 2020-10-02 05:50 | History & Physical-Hospitalist ---
History of Present Illness Date Seen 10/02/20 Attending Physician Vicenta Moore DO PCP [facility] Referring Physician Date of Admission Oct 01, 2020 at 17:49 Home Medications & Allergies Home Medications Reviewed patient Home Medication Reconciliation performed by pharmacy medication reconciliations health care technician and/or nursing. Patients Allergies have been reviewed. Allergies Allergies Coded Allergies No Known Drug Allergies (Unverified06/30/20) Past Qjwgcwv-Hrhval-Rskglr Hx Past Med/Social Hx: Reviewed Nursing Past Med/Soc Hx Patient Social History Alcohol Use: Denies Use Recreational Drug Use: No 2nd Hand Smoke Exposure: No Physical Abuse Screen: No Sexual Abuse: No Recent Foreign Travel: No Contact w/other who traveled: No Recent Hopitalizations: No Recent Infectious Disease Expo: No Immunizations Up To Date Date of Influenza Vaccine: Aug 01, 2020 Seasonal Allergies Seasonal Allergies: No Past Medical History Surgeries: Gallbladder, Hysterectomy, Tonsillectomy Cardiac: Hypertension Neurological: Brain Tumor Endocrine: Diabetes, Non-Insulin dep History of Blood Disorders: No Family History Patient reports no known family medical history. Physical Exam Physical Exam Vital Signs Vital Signs - First Documented 10/01/20 12:15 Temp 36.7 Pulse 63 Resp 18 B/P (MAP) 115/36 (62) Pulse Ox 98 O2 Delivery Room Air Capillary Refill : Less Than 3 Seconds Height, Weight, BMI Height: '" Weight: lbs. oz. kg; 28.28 BMI Method: Results Results/Procedures Labs Laboratory Tests 10/01/20 12:16 10/02/20 03:44 Patient resulted labs reviewed. Clinical Quality Measures DVT/VTE Risk/Contraindication: Risk Factor Score Per Nursin RFS Level Per Nursing on Admit: 3=High VICENTA MOORE DO Oct 02, 2020 05:50
[2020-10-02] MEDS ORDERED: MAGNESIUM 1 GM/100 ML IVPB 100 ML IV SCH (06:00)
[2020-10-02] MEDS ORDERED: KCL 20 MEQ TAB (K-DUR) PO SCH (06:00)
[2020-10-02] MEDS ORDERED: POTASSIUM CL 10MEQ/50ML IVPB 50 ML IV SCH (06:00)
--- NOTE | 2020-10-02 07:08 | NUR ---
report from CHERELLE Howard from ICU at this time. This RN will assume care of this patient when she arrives to this floor.
--- NOTE | 2020-10-02 07:25 | Diagnostic Imaging Report ---
INDICATION: Dyspnea Upright chest shows normal heart size and vascularity. The lungs are clear. There is no effusion or pneumothorax. There is no acute bony abnormality. IMPRESSION: Normal chest with no change from 10/01/2020. Dictated by: Dictated on workstation # [id number]
[2020-10-02] MEDS ORDERED: ASPIRIN 81 MG CHEW (CHILDREN'S ASA) PO SCH (09:00)
[2020-10-02] MEDS ORDERED: THIAMINE INJECTION 100 MG in NS (IVPB) 50 ML IV SCH (09:00)
--- NOTE | 2020-10-02 10:53 | Short Stay Summary-Hospitalist ---
History of Present Illness HPI/Chief Complaint CC: Altered mental status HPI: This is a 70yoWF clinic pt of [facility] who was placed on Phentermine four days ago and apparently had a side effect when she came into the [facility] ER with altered mental status and having significant problems with amnesia. All labs remain stable, she was placed in the ICU for observation and was ultimately transferred out. Her labs remained stable and she is back to her baseline activity and mentation. She will be discharged home and stop Phentermine. Source: patient Exam Limitations: no limitations Date Seen 10/02/20 Time Seen by a Provider: 10:00 Attending Physician Vicenta Moore DO [facility] Referring Physician Date of Admission Oct 01, 2020 at 17:49 Home Medications & Allergies Home Medications Reviewed patient Home Medication Reconciliation performed by pharmacy medication reconciliations radioactivity technician and/or nursing. Patients Allergies have been reviewed. Allergies Allergies Coded Allergies No Known Drug Allergies (Unverified06/30/20) Past Udotzuw-Whgreo-Fnzeln Hx Past Med/Social Hx: Reviewed Nursing Past Med/Soc Hx, Reviewed and Corrections made Patient Social History Marrital Status: single Alcohol Use: Denies Use Recreational Drug Use: No Smoking Status: Former Smoker 2nd Hand Smoke Exposure: No Physical Abuse Screen: No Sexual Abuse: No Recent Foreign Travel: No Contact w/other who traveled: No Recent Hopitalizations: No Recent Infectious Disease Expo: No Immunizations Up To Date Date of Influenza Vaccine: Aug 01, 2020 Seasonal Allergies Seasonal Allergies: No Past Medical History Surgeries: Gallbladder, Hysterectomy, Tonsillectomy Cardiac: Hypertension Neurological: Brain Tumor Endocrine: Diabetes, Non-Insulin dep History of Blood Disorders: No Family History Patient reports no known family medical history. Review of Systems Constitutional: see HPI, dizziness, malaise, weakness Physical Exam Physical Exam Vital Signs Vital Signs - First Documented 10/01/20 12:15 Temp 36.7 Pulse 63 Resp 18 B/P (MAP) 115/36 (62) Pulse Ox 98 O2 Delivery Room Air Capillary Refill : Less Than 3 Seconds Height, Weight, BMI Height: '" Weight: lbs. oz. 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 Short Stay Diagnosis Discharge Diagnosis-Short Stay Admission Diagnosis AMS Phentermine use 4 doses HTN ARF on CRI Plan: DC home Final Discharge Diagnosis AMS now resolved Phentermine use 4 doses HTN ARF on CRI Plan: DC home Conclusion Plan DC home Clinical Quality Measures DVT/VTE Risk/Contraindication: Risk Factor Score Per Nursin RFS Level Per Nursing on Admit: 3=High VICENTA MOORE DO Oct 02, 2020 10:52
[2020-10-02 11:43] VITALS: BP 158/78
--- NOTE | 2020-10-02 14:23 | NUR ---
CM/SS: Visited with pt related to her hospital stay and her plan for discharge. Plan: Pt to return home today and she lives with her spouse. Summary: Pt reports altered mental status when coming into the hospital. She reports taking phentermine - unsure of the correct spelling - a dietary supplement, and it caused her to have seizure like behavior as well altered mental status. She reports she wanted to loose weight before the holidays. She is advised to call her doctor for advisement in the area of weight loss. She verbalizes understanding. She is wished well.
== END 2020-10-02 12:30 | disposition home or self-care (01) | DRG 948 ==
LOC: EDUNIT# 12:08 → ER FS 12:10 → ICU 17:49 → 4TH 10-02 07:00
PROVIDERS: ADMIT Internal Medicine; ATTEND Internal Medicine
DX: R41.82 Altered mental status, unspecified (principal); N17.9 Acute kidney failure, unspecified; R41.3 Other amnesia; R42 Dizziness and giddiness; I95.9 Hypotension, unspecified; I12.9 Hypertensive chronic kidney disease with stage 1 through stage 4 chronic kidney disease, or unspecified chronic kidney disease; E11.22 Type 2 diabetes mellitus with diabetic chronic kidney disease; N18.9 Chronic kidney disease, unspecified; E66.9 Obesity, unspecified; Z79.84 Long term (current) use of oral hypoglycemic drugs; Z68.28 Body mass index [BMI] 28.0-28.9, adult; T50.5X5A Adverse effect of appetite depressants, initial encounter
CPT/HCPCS: 36415; 70450; 71045; 80048; 80053; 80306; 81000; 82805; 82962; 83605; 83735; 84100; 84443; 85025; 85610; 85730; 87081; 93005

== ENCOUNTER → 2021-03-21 | Outpatient (CLI) | payer BC, MEDICARE ==
[~2021-03-21] MED LIST changes: -CIPR500T4 PO; +CIPR500T5 PO; -MONT10TA26 PO; +MONT10TA32 PO
--- NOTE | 2021-03-21 13:21 | Diagnostic Imaging Report ---
INDICATION: Right shoulder pain. COMPARISON: None FINDINGS: 2 radiographic views of the right shoulder were obtained. There is no evidence of acute fracture or dislocation. Osseous structures are intact. Joint spaces are maintained. Small amount of extra osseous calcification is noted within the expected location of the supraspinatus tendon near its humeral insertion site. No unexpected radiopaque foreign bodies are seen. Included portions right hemithorax clear. IMPRESSION: 1. No acute fracture or dislocation right shoulder. 2. Possible calcific tendinosis. Findings can be seen with underlying hydroxyapatite disease. Dictated by: Dictated on workstation # [id number]
== END ==
LOC: RAD FS 11:53
PROVIDERS: ATTEND Nurse Practitioner Family
DX: M25.511 Pain in right shoulder (principal); G89.29 Other chronic pain
CPT/HCPCS: 73030